=== PATIENT | male | born 1995 | race Caucasian/White ===

== ENCOUNTER 2017-02-09 00:09 | Emergency (ER) | payer OTHER ==
[~2017-02-09] VITALS: Ht 180.3 cm; Wt 88.5 kg
[2017-02-09 01:22] LABS: MCH 31.9 PG (29.0-34.0); MCV 86.2 FL (86-99); MEAN PLAT.VOLUME 11.8 uM^3 (9.0-12.4); PLATELET COUNT 217 K/uL (156-360); RBC DIS.WIDTH-CV 11.9 % (11.8-14.6); RBC DIS.WIDTH-SD 37.3 % (39-53); RED BLOOD COUNT 4.99 M/uL (4.00-5.50); WHITE BLOOD COUNT 8.1 K/uL (4.1-10.2)
[2017-02-09 01:33] LABS: CHLORIDE 105 mEq/L (99-109); POTASSIUM 4.1 mEq/L (3.7-5.4); SODIUM 140 mEq/L (136-147)
[2017-02-09 01:36] LABS: GLUCOSE 100 mg/dL (70-99)
[2017-02-09 01:37] LABS: ANION GAP 6 MEQ/L (2-14); TOTAL BILIRUBIN 1.7 mg/dL (0.0-1.0)
[2017-02-09 01:39] LABS: ALKALINE PHOSPHATASE 75 IU/L (3-129); SERUM ETHYL ALCOHOL < 10 mg/dL
[2017-02-09 01:40] LABS: GFR ESTIMATE (CALCULATED) > 59 mL/min/
[2017-02-09 01:41] LABS: UREA NITROGEN (BUN) 14 mg/dL (9-23)
[2017-02-09 01:51] LABS: ADD MIUA? YES; BILIRUBIN NEGATIVE; BLOOD NEGATIVE; COLOR YELLOW ((YELLOW)); GLUCOSE (STRIP) NEGATIVE; KETONES NEGATIVE; LEUKOCYTES NEGATIVE; NITRITE NEGATIVE; PROTEIN (STRIP) 100; SPECIFIC GRAVITY 1.029 (1.000-1.030)
[2017-02-09 01:58] LABS: BACTERIA RARE /HPF; EPITHELIAL CELLS NONE SEEN /HPF; MUCUS 2+ /LPF; RED BLOOD CELLS 0-5 /HPF (0-5); WHITE BLOOD CELLS 0-5 /HPF (0-5)
[2017-02-09 01:59] LABS: AMPHETAMINE NEGATIVE (500 ng/mL); BARBITURATES NEGATIVE (200 ng/mL); BENZODIAZEPINES NEGATIVE (150 ng/mL); COCAINE NEGATIVE (150 ng/mL); INTERNAL CONTROLS VALID? YES; METHADONE NEGATIVE (200 ng/mL); METHAMPHETAMINE NEGATIVE (500 ng/mL); OPIATES (MORPHINE) NEGATIVE (100 ng/mL); OXYCODONE NEGATIVE (100 ng/mL); PHENCYCLIDINE NEGATIVE (25 ng/mL); PROPOXYPHENE NEGATIVE (300 ng/mL); THC CANNABINOIDS NEGATIVE (50 ng/mL); TRICYCLIC ANTIDEPRESSANTS NEGATIVE (300 ng/mL)
[2017-02-09 05:00] VITALS: BP 128/82
== END 2017-02-09 05:17 | disposition home or self-care (01) ==
LOC: EME 00:09
PROVIDERS: Emergency Medicine
DX: R45.851 Suicidal ideations (principal); F32.9 Major depressive disorder, single episode, unspecified; F41.9 Anxiety disorder, unspecified; F17.200 Nicotine dependence, unspecified, uncomplicated
CPT/HCPCS: 80053; 81003; 85027; 90837; 99281; 99285; G0480